=== PATIENT | male | born 1985 | race African-American/Black ===

== ENCOUNTER 2017-01-20 09:07 | Emergency (ER) | payer OTHER ==
[~2017-01-20] VITALS: Ht 177.8 cm; Wt 102.1 kg
[2017-01-20] MEDS ORDERED: ONDANSETRON 4 MG ORAL DISINTEGRATING TAB (S0181) PO ONE (10:00)
[2017-01-20] MEDS ORDERED: IBUPROFEN 800 MG TAB PO ONE (10:00)
[2017-01-20 10:54] VITALS: BP 123/85
[2017-01-20] MEDS ORDERED: AUGMENTIN 875 MG TAB PO ONE (11:00)
[2017-01-20] MEDS ORDERED: ALBU17IN INH (11:01)
[2017-01-20] MEDS ORDERED: AUGM875T27 PO (11:02)
[2017-01-20] MEDS ORDERED: ZOFR4TAB3 PO (11:03)
--- NOTE | 2017-01-20 11:56 | REP ---
CHEST: Two views. There is no evidence of acute infiltrate. No pleural effusion is seen. The heart is normal in size. The mediastinal silhouette is unremarkable. The visualized osseous structures are intact. IMPRESSION: No acute pulmonary disease. Signed by Barry Vela MD 01/20/2017 08:31 P
== END 2017-01-20 11:19 | disposition home or self-care (01) ==
LOC: M ED 09:55
DX: J06.9 Acute upper respiratory infection, unspecified (principal); H66.91 Otitis media, unspecified, right ear; R19.7 Diarrhea, unspecified

== ENCOUNTER 2017-10-18 12:29 | Emergency (ER) | payer OTHER, SELFPAY ==
[~2017-10-18] VITALS: Ht 177.8 cm; Wt 90.9 kg
[~2017-10-18 12:29] MED LIST: ALBU17IN INH; AUGM875T28 PO; ZOFR4TAB3 PO
[2017-10-18] MEDS ORDERED: VITA100067 PO (13:04)
--- NOTE | 2017-10-18 15:36 | REP ---
Clinical: Trauma with right posterior lower rib and flank pain. Technique: Frontal view of the chest with multiple views of the right hemithorax. Findings: Frontal view of the chest demonstrates no acute cardiopulmonary process or focal consolidation. Multiple views of the left hemithorax demonstrates no definite acute displaced rib fracture. However, subtle nondisplaced injury to the posterior aspect of the eleventh and twelfth ribs cannot definitively be excluded. Impression: 1. Subtle nondisplaced injury involving the posterior eleventh and twelfth ribs cannot be excluded. Signed by Janes Lees MD 10/18/2017 03:28 P
[2017-10-18] MEDS ORDERED: NORCOTAB PO (17:08)
[2017-10-18 17:28] VITALS: BP 143/83
== END 2017-10-18 17:46 | disposition home or self-care (01) ==
LOC: M ED 12:29
DX: S22.41XA Multiple fractures of ribs, right side, initial encounter for closed fracture (principal); X58.XXXA Exposure to other specified factors, initial encounter; Y92.89 Other specified places as the place of occurrence of the external cause; Y93.72 Activity, wrestling; Y99.8 Other external cause status; M62.830 Muscle spasm of back; F17.210 Nicotine dependence, cigarettes, uncomplicated

== ENCOUNTER 2017-11-21 11:34 | Emergency (ER) | payer OTHER | END 2017-11-21 13:30 | disposition home or self-care (01) | LOC: M ED 11:34 | DX: G51.0 Bell's palsy (principal) | CPT/HCPCS: 70450 ==